=== PATIENT | male | born 1960 | race Caucasian/White ===

== ENCOUNTER 2020-11-13 17:08 | Inpatient (IN) ==
[2020-11-13 19:29] LABS: Basophils % 0.4 %; Hematocrit 45.5 % (37.5-50.1); Hemoglobin 15.6 g/dL (12.9-16.9); Immature Granulocytes % 0.6 % (0-4); Lymphocytes # 0.9 K/mcL (0.6-4.6); Lymphocytes % 13.5 %; Mean Corpuscular HGB Conc 34.3 g/dL (31.6-35.5); Mean Corpuscular Hemoglobin 29.4 pg (28.0-33.3); Mean Corpuscular Volume 85.7 fL (83.0-100.0); Mean Platelet Volume 9.1 fL (9.4-12.4); Monocytes # 0.7 K/mcL (0.0-1.3); Monocytes % 9.6 %; Neutrophils # 5.3 K/mcL (1.6-8.9); Platelet Count 197 K/mcL (140-400); Red Blood Count 5.31 M/mcL (4.19-5.50); Red Cell Distribution Width 13.4 % (11.5-14.5); Segmented Neutrophils % 75.9 %
[2020-11-13 20:01] LABS: BUN/Creatinine Ratio 16 (6-26); Blood Urea Nitrogen 39 mg/dL (6-20); Carbon Dioxide 19 mEq/L (23-29); Chloride 94 mEq/L (98-107); Glucose 208 mg/dL (70-105); Osmolality,Calculated 279 (280-300); Potassium 4.2 mEq/L (3.5-5.1); Sodium 127 mEq/L (136-145); eGFR For African Americans 34 (> 60); eGFR For Non-African Americans 28 (> 60)
[2020-11-13] MEDS ORDERED: 0.9 % Sodium Chloride 1,000 ML IV ONE (20:04)
[2020-11-13 20:08] LABS: Troponin I < 0.03 ng/mL (< 0.04)
[2020-11-13 21:32] LABS: VBG HCO3 21 mEq/L (21-27); VBG PCO2 37 mmHg (41-51); VBG PH 7.35 pH Units (7.32-7.42); VBG PO2 37 mmHg (25-50)
[2020-11-13 21:40] LABS: Adenovirus Not Detected (Not Detect); Bordetella Pertussis Not Detected (Not Detect); Chlamydophila pneumoniae Not Detected (Not Detect); Coronavirus 229E Not Detected (Not Detect); Coronavirus HKU1 Not Detected (Not Detect); Coronavirus NL63 Not Detected (Not Detect); Coronavirus OC43 Not Detected (Not Detect); Human Metapneumovirus Not Detected (Not Detect); Human Rhinovirus/Enterovirus Not Detected (Not Detect); Influenza A Subtype 2009 H1 Not Detected (Not Detect); Influenza B Not Detected (Not Detect); Mycoplasma pneumoniae Not Detected (Not Detect); Parainfluenza Virus 1 Not Detected (Not Detect); Parainfluenza Virus 2 Not Detected (Not Detect); Parainfluenza Virus 3 Not Detected (Not Detect); Parainfluenza Virus 4 Not Detected (Not Detect); Respiratory Syncytial Virus Not Detected (Not Detect)
[2020-11-13 21:45] LABS: SARS-CoV-2 DETECTED (Not Detect)
[2020-11-13 23:25] LABS: Calcium 7.7 mg/dL (8.6-10.3); Potassium 4.3 mEq/L (3.5-5.1)
[2020-11-14] MEDS ORDERED: Ondansetron 4 MG/2 ML VIAL IVP PRN (04:29)
[2020-11-14] MEDS ORDERED: Naloxone 0.4 MG/ML INJ IVP PRN (04:29)
[2020-11-14] MEDS ORDERED: Melatonin 3 MG TABLET PO PRN (04:29)
[2020-11-14] MEDS ORDERED: 0.9 % Sodium Chloride 1,000 ML IVC SCH (04:30)
[2020-11-14] MEDS ORDERED: Ipratropium 1 PUFF INHALER IH PRN (04:31)
[2020-11-14] MEDS ORDERED: D5% in Water 1,000 ML IVC PRN (04:42)
[2020-11-14] MEDS ORDERED: *HR* Dextrose 50 % in Water (Vial) 50 ML VIAL IVP PRN (04:42)
[2020-11-14] MEDS ORDERED: Dextrose Gel 15 GM/37.5 ML TUBE PO PRN ×2 (04:42)
[2020-11-14] MEDS ORDERED: *HR* Enoxaparin 40 MG/0.4 ML SYRINGE SQ SCH (06:00)
[2020-11-14] MEDS ORDERED: Insulin LISPRO 300 UNITS/3 ML VIAL SUBQ SCH (06:00)
[2020-11-14] MEDS ORDERED: Benzonatate 100 MG CAPSULE PO PRN (06:37)
[2020-11-14 06:43] LABS: Sodium, Urine 25.4 mEq/L
[2020-11-14 06:50] LABS: Calcium 7.5 mg/dL (8.6-10.3); Potassium 4.4 mEq/L (3.5-5.1)
[2020-11-14] MEDS: Insulin LISPRO 300 UNITS/3 ML VIAL SUBQ SCH ×3 (12:36→21:22)
[2020-11-14] MEDS ORDERED: Azithromycin 500 MG in 0.9 % Sodium Chloride 250 ML IVPB ONE (13:00)
[2020-11-14] MEDS ORDERED: cefTRIAXone 2,000 MG in Water for inj. (sterile) 20 ML IVP ONE (13:00)
[2020-11-14] MEDS ORDERED: *HR* Dextrose 50 % in Water (Syg) 50 ML SYRINGE IVP PRN (15:00)
[2020-11-14 15:38] LABS: Adenovirus F 40/41 PCR Not detected (Not detect); Astrovirus PCR Not detected (Not detect); C.difficile Toxin A/B Gene PCR Not detected (Not detect); Campylobacter by PCR Not detected (Not detect); Cryptosporidium by PCR Not detected (Not detect); Cyclospora cayetanensis PCR Not detected (Not detect); E. coli O157 by PCR Not detected (Not detect); Entamoeba histolytica PCR Not detected (Not detect); Enteroaggregative E.coli(EAEC) Not detected (Not detect); Enteropathogenic E.coli(EPEC) Not detected (Not detect); Enterotoxigenic E.coli (ETEC) Not detected (Not detect); Giardia lamblia PCR Not detected (Not detect); Norovirus GI/GII PCR Not detected (Not detect); Plesiomonas shigelloides PCR Not detected (Not detect); Rotavirus A PCR Not detected (Not detect); Salmonella PCR Not detected (Not detect); Sapovirus PCR Not detected (Not detect); Shig/EnteroinvasiveE coli EIEC Not detected (Not detect); Shigalike tox-prod E coli STEC Not detected (Not detect); Vibrio PCR Not detected (Not detect); Vibrio cholerae PCR Not detected (Not detect); Yersinia enterocolitica PCR Not detected (Not detect)
[2020-11-14 17:18] LABS: Calcium 7.4 mg/dL (8.6-10.3); Potassium 4.2 mEq/L (3.5-5.1)
[2020-11-14] MEDS: *HR* Enoxaparin 40 MG/0.4 ML SYRINGE SQ SCH (17:38)
[2020-11-14] MEDS ORDERED: Menthol 1 EACH LOZENGE PO PRN (18:03)
[2020-11-15] MEDS: *HR* Enoxaparin 40 MG/0.4 ML SYRINGE SQ SCH ×2 (05:19→16:55)
[2020-11-15 06:58] LABS: Hematocrit 37.1 % (37.5-50.1); Mean Corpuscular Hemoglobin 29.4 pg (28.0-33.3); Mean Corpuscular Volume 83.9 fL (83.0-100.0); Mean Platelet Volume 9.5 fL (9.4-12.4); Platelet Count 171 K/mcL (140-400); Red Blood Count 4.42 M/mcL (4.19-5.50); Red Cell Distribution Width 13.5 % (11.5-14.5); White Blood Count 5.9 K/mcL (4.3-11.1)
[2020-11-15 07:22] LABS: Calcium 7.5 mg/dL (8.6-10.3); Potassium 4.5 mEq/L (3.5-5.1)
[2020-11-15 07:25] LABS: Lactate Dehydrogenase 388 Units/L (140-271)
[2020-11-15 07:35] LABS: Ferritin 389 ng/mL (20-250)
[2020-11-15] MEDS ORDERED: Azithromycin 500 MG in 0.9 % Sodium Chloride 250 ML IVPB SCH (09:00)
[2020-11-15] MEDS: Insulin LISPRO 300 UNITS/3 ML VIAL SUBQ SCH ×4 (09:23→20:59)
[2020-11-15] MEDS: Azithromycin 250 MG TABLET PO SCH (09:24)
[2020-11-15] MEDS ORDERED: 0.9 % Sodium Chloride 500 ML IVC SCH (12:00)
[2020-11-15] MEDS: Ondansetron 4 MG/2 ML VIAL IVP SCH ×2 (13:15→16:55)
[2020-11-15] MEDS: 0.9 % Sodium Chloride 1,000 ML IVC SCH ×2 (13:16→21:00)
[2020-11-15] MEDS: cefTRIAXone 2,000 MG in Water for inj. (sterile) 20 ML IVP SCH (16:54)
[2020-11-16 01:52] LABS: Calcium 7.9 mg/dL (8.6-10.3); Potassium 4.3 mEq/L (3.5-5.1)
[2020-11-16] MEDS: *HR* Enoxaparin 40 MG/0.4 ML SYRINGE SQ SCH ×2 (05:03→16:52)
[2020-11-16] MEDS: Insulin LISPRO 300 UNITS/3 ML VIAL SUBQ SCH ×4 (09:05→21:31)
[2020-11-16] MEDS: 0.9 % Sodium Chloride 1,000 ML IVC SCH ×3 (09:24→20:20)
[2020-11-16] MEDS: Aspirin Enteric Coated 81 MG Tablet PO SCH (09:25)
[2020-11-16] MEDS: Ondansetron 4 MG/2 ML VIAL IVP SCH ×3 (09:25→16:53)
[2020-11-16] MEDS: Azithromycin 250 MG TABLET PO SCH (09:25)
[2020-11-16] MEDS: cefTRIAXone 2,000 MG in Water for inj. (sterile) 20 ML IVP SCH (16:52)
[2020-11-17] MEDS: *HR* Enoxaparin 40 MG/0.4 ML SYRINGE SQ SCH (05:34)
[2020-11-17] MEDS: Ondansetron 4 MG/2 ML VIAL IVP SCH ×2 (09:02→12:53)
[2020-11-17] MEDS: Azithromycin 250 MG TABLET PO SCH (09:02)
[2020-11-17] MEDS: Insulin LISPRO 300 UNITS/3 ML VIAL SUBQ SCH ×2 (09:02→12:53)
[2020-11-17] MEDS: Aspirin Enteric Coated 81 MG Tablet PO SCH (09:02)
[2020-11-17 09:38] LABS: VBG HCO3 20 mEq/L (21-27); VBG PCO2 35 mmHg (41-51); VBG PH 7.36 pH Units (7.32-7.42); VBG PO2 129 mmHg (25-50)
[2020-11-17 09:53] LABS: BUN/Creatinine Ratio 16 (6-26); Blood Urea Nitrogen 22 mg/dL (6-20); Calcium 7.7 mg/dL (8.6-10.3); Carbon Dioxide 20 mEq/L (23-29); Chloride 105 mEq/L (98-107); Creatine Kinase 1066 Units/L (30-223); Glucose 236 mg/dL (70-105); Osmolality,Calculated 285 (280-300); Potassium 4.1 mEq/L (3.5-5.1); Sodium 132 mEq/L (136-145); eGFR For African Americans > 60 (> 60); eGFR For Non-African Americans 53 (> 60)
[2020-11-17 11:54] VITALS: BP 152/82; PULSE 89; TEMP 97.1; O2SAT 98
== END 2020-11-17 14:32 | disposition home or self-care (01) | DRG 720 ==
LOC: 2ANU 17:08 → EMEROOARM 17:08 → SUATTDRO 11-14 04:00 → 2ANU 11-14 04:26
PROVIDERS: ADMIT Student in an Organized Health Care Education/Training Program; ATTEND Internal Medicine